=== PATIENT | male | born 1930 | race Caucasian/White ===

== ENCOUNTER → 2017-07-15 | Outpatient (CLI) | payer OTHER | LOC: FIMAGING 11:50 | PROVIDERS: ATTEND Internal Medicine Hematology & Oncology | PROC: 0W9B3ZZ Drainage of Left Pleural Cavity, Percutaneous Approach (ICD-10-PCS; principal; 2017-07-15) | DX: Z09 Encounter for follow-up examination after completed treatment for conditions other than malignant neoplasm (principal); J94.2 Hemothorax; J90 Pleural effusion, not elsewhere classified; Z85.118 Personal history of other malignant neoplasm of bronchus and lung ==